=== PATIENT | male | born 1995 | race Caucasian/White ===

== ENCOUNTER 2017-11-02 02:21 | Emergency (ER) | payer OTHER ==
[~2017-11-02] VITALS: Ht 188 cm; Wt 71.4 kg
[2017-11-02 02:30] VITALS: O2SAT 100
[2017-11-02 02:32] VITALS: TEMP 36.8; Ht 188 cm; Wt 71.4 kg
[2017-11-02 03:00] LABS: CALCIUM 8.6 mg/dl (8.5-10.1); CREATININE 1.01 mg/dl (0.60-1.40)
[2017-11-02 08:12] VITALS: BP 105/67; PULSE 91; O2SAT 97
--- NOTE | 2017-11-02 22:45 | EMERGENCY ROOM VISIT NOTE ---
History Report prepared by Ria: Cinthia Barrett Under the Supervision of: Dr. Agatha Medeiros D.O. First contact with patient: 02:21 Chief Complaint: ALCOHOL OVERDOSE Stated Complaint: ALCOHOL OVERDOSE Nursing Triage Summary: etoh od History of Present Illness The patient is a 22 year old male who presents to the Emergency Room with complaints of an episode of alcohol overdose occurring prior to arrival. The patient states that he remembers going to his friend's apartment to drink and then was trying to go home when he blacked out. He states that he has only used alcohol this evening. HPI and ROS limited secondary to alcohol intoxication. Source of History: patient History Limited By: intoxication Onset: prior to arrival Position: other (global) Quality: other (global) Timing: other (episode) Note: The patient denies using anything other than alcohol this evening. Review of Systems See HPI for pertinent positives & negatives. A total of 10 systems reviewed and were otherwise negative. Past Medical & Surgical Medical Problems: (1) No Known Active Medical Problems Family History No pertinent family history Social History Smoking Status: Never Smoker Alcohol Use: occasionally Marital Status: single Housing Status: lives with roommate Occupation Status: [employer] student Current/Historical Medications No Active Prescriptions or Reported Meds Allergies Coded Allergies: No Known Allergies (Unverified , 11/02/17) Physical Exam Vital Signs Date Time Temp Pulse Resp B/P (MAP) Pulse Ox O2 Delivery O2 Flow Rate FiO2 11/02/17 08:12 91 18 105/67 97 11/02/17 05:30 97 97 Room Air 11/02/17 05:02 116/69 11/02/17 05:00 81 98 Room Air 11/02/17 04:30 66 93/40 94 Room Air 11/02/17 04:01 129/69 11/02/17 04:00 98 98 11/02/17 03:30 95 23 140/77 99 11/02/17 03:16 140/79 11/02/17 02:32 36.8 104 20 125/67 100 Room Air 11/02/17 02:31 110 11/02/17 02:30 100 Room Air Physical Exam HEENT: Head - normocephalic and atraumatic Pupils are 5 mm and sluggishly reactive to light. Extraocular eye muscles are intact, and sclera are anicteric. Nose - moist nasal mucosa without discharge. Mouth - moist buccal mucosa. Oropharynx is nonerythematous and there is no tonsillar exudate or edema noted. Neck: Supple; no JVD, nuchal rigidity, cervical lymphadenopathy. Heart: Tachycardic rate and regular rhythm. There is a normal S1 and S2 with no murmurs, clicks, or gallops appreciated. Lungs: Clear to auscultation bilaterally with no wheezes, rales, or rhonchi. Abdomen: Soft, completely nontender, nondistended, with good bowel sounds. There are no palpable pulsatile masses or hepatosplenomegaly. There is no guarding, rigidity, or rebound noted. Extremities: No evidence of cyanosis, clubbing, or edema. There are easily palpable peripheral pulses. Skin: warm and dry with good turgor and no rashes. Medical Decision & Procedures Laboratory Results 11/02/17 02:35 Test 11/02/17 02:35 Anion Gap 6.0 mmol/L (3-11) Est Creatinine Clear Calc Drug Dose 117.8 ml/min Estimated GFR () 123.5 Estimated GFR (Non- 106.6 BUN/Creatinine Ratio 10.0 (10-20) Calcium Level 8.6 mg/dl (8.5-10.1) Ethyl Alcohol mg/dL 331.0 mg/dl (0-3) Laboratory results per my review. ED Course 0242: Past medical records reviewed. The patient was evaluated in room B12B. A complete history and physical exam was performed. Labs were drawn as above. The patient was observed on the bunk assembler and pulse oximeter. He was placed in the prone position to avoid aspiration. 0310: He had friends arrive in the emergency department. They deny for carpal taking him home in this intoxicated state. We obtained her phone number so we could reach them in the morning. 0358: I reevaluated the patient. He was concerned about the overhead light. He is hallucinating as he thought the light was a girl. His vitals remained stable. 0500: The patient is sleeping at this time. He is hemodynamically stable. 0644: I reevaluated the patient. He is fully awake and cooperative. We called his friend to come get him. I discussed findings and results with him. He verbalized agreement of the treatment plan. The patient was discharged home. Medical Decision The patient is a 22 year old male who presents to the Emergency Room with complaints of an episode of alcohol overdose occurring prior to arrival. Differential diagnoses include alcohol overdose, substance abuse, hypoglycemia, head injury. LABS: Alcohol 331 Potassium 3.0 Glucose 126 Normal renal function this is a 22-year-old male patient who was brought to the emergency department after consuming too much alcohol. He denied any other drug use although he did have some hallucinations while here in the emergency department. He was given some time to sober up. Once he was sober and completely cooperative, we contacted his friends came back to the emergency department to take him home. I spent some time encouraging him to avoid such excessive alcohol use in the future. Medication Reconcilliation Current Medication List: was personally reviewed by me Blood Pressure Screening Patient's blood pressure: Normal blood pressure Blood pressure disposition: Did not require urgent referral Impression Primary Impression: Alcohol overdose Scribe Attestation The scribe's documentation has been prepared under my direction and personally reviewed by me in its entirety. I confirm that the note above accurately reflects all work, treatment, procedures, and medical decision making performed by me. Departure Information Dispostion Home / Self-Care Prescriptions No Active Prescriptions or Reported Meds Forms HOME CARE DOCUMENTATION FORM, IMPORTANT VISIT INFORMATION Patient Instructions My [facility] [place] [employer] Additional Instructions Rest. take plenty of clear liquids and a bland diet. Avoid such excessive alcohol use in the future Use tylenol for headache Problem Qualifiers Primary Impression: Alcohol overdose Encounter type: initial encounter Injury intent: accidental or unintentional Qualified Codes: T51.91XA - Toxic effect of unspecified alcohol , accidental (unintentional), initial encounter
== END 2017-11-02 08:15 | disposition home or self-care (01) ==
LOC: C.EDB 02:23 → C.EDA 08:15
DX: T51.0X1A Toxic effect of ethanol, accidental (unintentional), initial encounter (principal)